=== PATIENT | female | born 1990 | race Caucasian/White ===

== ENCOUNTER 2020-11-09 22:36 | Emergency (ER) | payer OTHER ==
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
[2020-11-09] MEDS: Sodium Chloride 0.9% 10 ML Syringe FLUSH PRN (23:16)
[2020-11-09] MEDS ORDERED: Sodium Chloride 0.9% 10 ML SDV FLUSH ONE (23:20)
[2020-11-09] MEDS ORDERED: Iopamidol 612 MG/ML 100 ML Bottle IV PRN (23:20)
[2020-11-09] MEDS ORDERED: Sodium Chloride 0.9% 100 ML IV SCH (23:30)
[2020-11-09] MEDS ORDERED: Ketorolac 30 MG/ML SDV IVPUSH ONE (23:57)
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
[2020-11-10] MEDS: Sodium Chloride 0.9% 10 ML Syringe FLUSH PRN (00:04)
[2020-11-10] MEDS ORDERED: Azithromycin 250 MG Tab PO ONE (00:45)
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
== END 2020-11-10 01:02 | disposition home or self-care (01) ==
LOC: JP.ED 22:36
DX: S10.93XA Contusion of unspecified part of neck, initial encounter (principal); S20.01XA Contusion of right breast, initial encounter; S20.02XA Contusion of left breast, initial encounter; J03.90 Acute tonsillitis, unspecified; Z88.8 Allergy status to other drugs, medicaments and biological substances; Y04.0XXA Assault by unarmed brawl or fight, initial encounter
CPT/HCPCS: 36415; 70491; 71046; 85025; 96374; 99284; A9270; J1885

== ENCOUNTER 2021-03-08 23:13 | Emergency (ER) | payer MEDICAID, OTHER ==
[2021-03-08] MEDS ORDERED: Nicotine Polacrilex 2 MG Gum CHEW PRN (23:57)
== END 2021-03-09 02:35 | disposition home or self-care (01) ==
LOC: JP.ED 23:13
DX: F33.2 Major depressive disorder, recurrent severe without psychotic features (principal); Z88.8 Allergy status to other drugs, medicaments and biological substances
CPT/HCPCS: 99284; A9270